=== PATIENT | female | born 1995 | race African-American/Black ===

== ENCOUNTER 2017-04-29 14:51 | Emergency (ER) | payer SELFPAY ==
[~2017-04-29] VITALS: Ht 165.1 cm; Wt 118.0 kg
[~2017-04-29 14:51] MED LIST: ADVAIR DISK1 INH; ALBUTEROL0.5 % IN; ALL DAY10 MG PO; AMOXICILLIN875 MG PO; CEPHALEXIN500 MG PO; DUONEB IN; FLONASE SPRAY50 MC1 INH; METRONIDAZOL500 MG PO; MUCINEX600 MG PO; NAPROSYN500 MG PO; NO MEDS; PHENERGAN SUPP RE; PREDNISONE10 MG PO; SINGULAIR PO; SYMBICORT 80-4.5MCG INH; TRIMOX500 MG PO; VENTOLIN HF1 IN; VENTOLIN HFA IN; ZITHROMAX250 MG PO
[2017-04-29 15:44] LABS: HEMATOCRIT 38.3 % (37.0-47.0); IMMATURE GRANULOCYTES 0.1 % (0.0-1.0); MEAN CELL VOLUME 75.7 fL CALC (80.0-100.0); MEAN CORPUSCULAR HGB 23.7 pG CALC (26.0-32.0); MEAN CORPUSCULAR HGB CONC 31.3 g/L CALC (32.0-36.0); NEUT# 7.05 thou/uL (2.00-7.15); RED BLOOD COUNT 5.06 mill/uL (4.20-5.60); RED CELL DISTRI WIDTH 15.3 % (11.5-15.5)
[2017-04-29 16:05] LABS: ALBUMIN 4.4 g/dL (3.2-5.0); ALKALINE PHOSPHATASE 62 u/l (38-126); AMYLASE 78 u/l (30-110); ANION GAP 17 (6-22 (CALC)); BILIRUBIN, TOTAL 0.5 mg/dL (0.0-1.4); BUN 14 mg/dL (7-17); BUN/CREATININE RATIO 18 (12-20 (CALC)); CALCIUM 9.2 mg/dL (8.4-10.2); CARBON DIOXIDE 24 mmol/l (22-30); CHLORIDE 103 mmol/l (95-108); CREATININE 0.8 mg/dL (0.5-1.0); GFR > 60 ML/MIN (>=60 (CALC)); GFR FOR AFR.AMER. > 60 ML/MIN (>=60 (CALC)); GLUCOSE 111 mg/dL (65-105); LIPASE 104 u/l (23-300); SGOT/AST 22 u/l (14-36); SGPT/ALT 30 u/l (9-52); SODIUM 140 mmol/l (137-146)
[2017-04-29] MEDS ORDERED: ZOFRAN ODT4 MG PO (16:27)
[2017-04-29] MEDS ORDERED: LOMOTIL2.5 MG PO (16:27)
[2017-04-29 16:59] VITALS: BP 127/76
== END 2017-04-29 17:09 | disposition home or self-care (01) | DRG 392 ==
LOC: ED 14:51
PROVIDERS: Emergency Medicine
DX: K52.9 Noninfective gastroenteritis and colitis, unspecified (principal); J45.909 Unspecified asthma, uncomplicated

== ENCOUNTER 2021-12-30 14:15 | Emergency (ER) | payer OTHER ==
[~2021-12-30] VITALS: Ht 165.1 cm; Wt 136.0 kg
[~2021-12-30 14:15] MED LIST changes: +LOMOTIL2.5 MG PO; +ZOFRAN ODT4 MG PO
[2021-12-30] MEDS ORDERED: ALBUTEROL SUL0.083 % IN (15:09)
[2021-12-30] MEDS ORDERED: SYMBICORT 80-4.5MCG (15:09)
[2021-12-30 15:23] LABS: HEMATOCRIT 34.2 % (37.0-47.0); HEMOGLOBIN 10.2 g/dl (12.0-16.0); MEAN CELL VOLUME 75.3 fL CALC (80.0-100.0); MEAN CORPUSCULAR HGB 22.5 pG CALC (26.0-32.0); MEAN CORPUSCULAR HGB CONC 29.8 g/dL CAL (32.0-36.0); NEUT# 1.98 thou/uL (2.00-7.15); RED BLOOD COUNT 4.54 mill/uL (4.20-5.60); RED CELL DISTRI WIDTH 16.5 % (11.5-15.5)
[2021-12-30 15:39] LABS: ALKALINE PHOSPHATASE 47 u/l (38-126); ANION GAP 12 (6-22 (CALC)); BILIRUBIN, TOTAL 0.2 mg/dL (0.0-1.4); BUN 13 mg/dL (7-17); BUN/CREATININE RATIO 15 (12-20 (CALC)); CARBON DIOXIDE 26 mmol/l (22-30); CHLORIDE 104 mmol/l (95-108); CREATININE 0.9 mg/dL (0.5-1.0); GFR FOR AFR.AMER. > 60 ML/MIN (>=60 (CALC)); GFR OTHER RACES > 60 ML/MIN (>=60 (CALC)); POTASSIUM 4.1 mmol/l (3.5-5.1); SGOT/AST 23 u/l (14-36); SODIUM 139 mmol/l (137-146); TOTAL PROTEIN 7.5 g/dL (6.3-8.2)
[2021-12-30] MEDS ORDERED: NAPROXEN500 MG PO (16:44)
[2021-12-30] MEDS ORDERED: PREDNISONE20 MG PO (16:44)
[2021-12-30 16:56] VITALS: BP 126/76
== END 2021-12-30 17:15 | disposition home or self-care (01) | DRG 556 ==
LOC: ED 14:15
PROVIDERS: Nurse Practitioner
DX: M25.572 Pain in left ankle and joints of left foot (principal); R70.0 Elevated erythrocyte sedimentation rate

== ENCOUNTER 2022-06-24 21:16 | Emergency (ER) | payer OTHER ==
[2022-06-24] VITALS (7 sets, daily range): BP systolic 121–166; BP diastolic 80–114
[~2022-06-24] VITALS: Ht 165.1 cm; Wt 139.0 kg
[~2022-06-24 21:16] MED LIST changes: +ALBUTEROL SUL0.083 % IN; +NAPROXEN500 MG PO; +PREDNISONE20 MG PO; +SYMBICORT 80-4.5MCG
[2022-06-24 21:41] LABS: BASO% 0.5 % (0-3); EOS% 9.7 % (0-8); HEMOGLOBIN 11.5 g/dl (12.0-16.0); LYMPH% 52.9 % (15-41); MEAN CELL VOLUME 74.1 fL CALC (80.0-100.0); MEAN CORPUSCULAR HGB 22.4 pG CALC (26.0-32.0); MEAN CORPUSCULAR HGB CONC 30.3 g/dL CAL (32.0-36.0); NEUT# 1.72 thou/uL (2.00-7.15); NEUT% 29.9 % (42-76); RED BLOOD COUNT 5.13 mill/uL (4.20-5.60); RED CELL DISTRI WIDTH 16.6 % (11.5-15.5)
[2022-06-24 21:53] LABS: ALBUMIN 4.7 g/dL (3.2-5.0); ALKALINE PHOSPHATASE 53 u/l (38-126); BUN 16 mg/dL (7-17); BUN/CREATININE RATIO 18 (12-20 (CALC)); CARBON DIOXIDE 26 mmol/l (22-30); CHLORIDE 105 mmol/l (95-108); CREATININE 0.9 mg/dL (0.5-1.0); GFR FOR AFR.AMER. > 60 ML/MIN (>=60 (CALC)); GFR OTHER RACES > 60 ML/MIN (>=60 (CALC)); SGOT/AST 27 u/l (14-36); SODIUM 138 mmol/l (137-146); TOTAL PROTEIN 8.9 g/dL (6.3-8.2)
[2022-06-24 21:55] LABS: D-DIMER 0.97 mg/L (0.19-0.60)
[2022-06-24 21:57] LABS: PROTHROMBIN TIME 9.6 SECONDS (9.0-12.5)
[2022-06-24 21:59] LABS: ANION GAP 11 (6-22 (CALC)); BILIRUBIN, TOTAL 0.1 mg/dL (0.02-1.3); POTASSIUM 4.1 mmol/l (3.5-5.1)
[2022-06-24] MEDS ORDERED: SYMBICORT1 AE1 IN (23:24)
[2022-06-24] MEDS ORDERED: VENTOLIN HFA IN (23:24)
== END 2022-06-24 23:54 | disposition home or self-care (01) | DRG 203 ==
LOC: ED 21:16
PROVIDERS: Family Medicine
DX: J45.901 Unspecified asthma with (acute) exacerbation (principal); T48.6X6A Underdosing of antiasthmatics, initial encounter; Z91.128 Patient's intentional underdosing of medication regimen for other reason
CPT/HCPCS: Q9967

== ENCOUNTER 2023-02-07 12:00 | Emergency (ER) | payer OTHER ==
[~2023-02-07] VITALS: Ht 165.1 cm; Wt 140.0 kg
[~2023-02-07 12:00] MED LIST changes: +SYMBICORT1 AE1 IN
[2023-02-07 12:06] VITALS: BP 135/78
[2023-02-07 12:45] LABS: ALBUMIN 4.1 g/dL (3.2-5.0); ALKALINE PHOSPHATASE 58 u/l (38-126); ANION GAP 10 (6-22 (CALC)); BASO% 0.4 % (0-3); BUN 14 mg/dL (7-17); BUN/CREATININE RATIO 17 (12-20 (CALC)); CARBON DIOXIDE 28 mmol/l (22-30); CHLORIDE 104 mmol/l (95-108); CREATININE 0.8 mg/dL (0.5-1.0); EOS% 11.1 % (0-8); GFR FOR AFR.AMER. > 60 ML/MIN (>=60 (CALC)); GFR OTHER RACES > 60 ML/MIN (>=60 (CALC)); HEMATOCRIT 36.7 % (37.0-47.0); HEMOGLOBIN 11.3 g/dl (12.0-16.0); IMMATURE GRANULOCYTES 0.6 % (0.0-5.0); LYMPH% 37.9 % (15-41); MEAN CELL VOLUME 75.7 fL CALC (80.0-100.0); MEAN CORPUSCULAR HGB 23.3 pG CALC (26.0-32.0); MEAN CORPUSCULAR HGB CONC 30.8 g/dL CAL (32.0-36.0); MONO% 7.4 % (2-13); NEUT# 2.08 thou/uL (2.00-7.15); NEUT% 42.6 % (42-76); POTASSIUM 3.9 mmol/l (3.5-5.1); RED BLOOD COUNT 4.85 mill/uL (4.20-5.60); RED CELL DISTRI WIDTH 16.3 % (11.5-15.5); SGOT/AST 30 u/l (14-36); SODIUM 138 mmol/l (137-146)
[2023-02-07 12:56] LABS: BILIRUBIN, TOTAL 0.3 mg/dL (0.02-1.3)
[2023-02-07 14:01] LABS: URINE BILIRUBIN - DIPSTICK Negative (NEGATIVE); URINE BLOOD DIPSTICK Trace-intact (NEGATIVE); URINE COLOR Yellow; URINE GLUCOSE - DIPSTICK Negative (NEGATIVE); URINE KETONE Negative (NEGATIVE); URINE LEUK ESTERASE Negative (NEGATIVE); URINE NITRITE - DIPSTICK Negative (Negative); URINE PROTEIN - DIPSTICK >=300 mg/dL (NEG-TRACE); URINE SPECIFIC GRAVITY 1.025; URINE UROBILINOGEN - DIPSTICK 0.2 E.U./dL (0.2)
[2023-02-07 14:02] LABS: URINE EPITHELIAL CELLS MODERATE EPI/hpf (0-FEW); URINE MUCUS MODERATE hpf (NONE-FEW); URINE RBC 0-2 RBC/hpf (0-5)
[2023-02-07] MEDS ORDERED: PREDNISONE20 MG PO (14:26)
[2023-02-07] MEDS ORDERED: ZPAK PO (14:26)
[2023-02-07] MEDS ORDERED: PROAIR HFA IN (14:29)
[2023-02-07 15:00] VITALS: BP 135/78
== END 2023-02-07 15:33 | disposition home or self-care (01) | DRG 203 ==
LOC: ED 12:00
PROVIDERS: Nurse Practitioner
DX: J45.901 Unspecified asthma with (acute) exacerbation (principal); Z20.822 Contact with and (suspected) exposure to COVID-19

== ENCOUNTER 2023-12-28 02:18 | Emergency (ER) | payer OTHER ==
[~2023-12-28] VITALS: Ht 167.6 cm; Wt 146.0 kg
[~2023-12-28 02:18] MED LIST changes: +BACTRIM DS1 TAB PO; +PROAIR HFA IN; +ZPAK PO
[2023-12-28 03:27] LABS: URINE BLOOD DIPSTICK Trace-lysed (NEGATIVE); URINE GLUCOSE - DIPSTICK Negative (NEGATIVE); URINE KETONE Trace mg/dL (NEGATIVE); URINE LEUK ESTERASE Negative (NEGATIVE); URINE NITRITE - DIPSTICK Negative (Negative); URINE PROTEIN - DIPSTICK >=300 mg/dL (NEG-TRACE); URINE SPECIFIC GRAVITY >=1.030
[2023-12-28 03:27] LABS: BASO% 0.4 % (0-3); EOS% 5.5 % (0-8); HEMATOCRIT 37.6 % (37.0-47.0); HEMOGLOBIN 11.7 g/dl (12.0-16.0); IMMATURE GRANULOCYTES 0.5 % (0.0-5.0); MEAN CELL VOLUME 75.5 fL CALC (80.0-100.0); MEAN CORPUSCULAR HGB 23.5 pG CALC (26.0-32.0); MEAN CORPUSCULAR HGB CONC 31.1 g/dL CAL (32.0-36.0); MONO% 7.3 % (2-13); NEUT# 2.66 thou/uL (2.00-7.15); NEUT% 48.3 % (42-76); RED BLOOD COUNT 4.98 mill/uL (4.20-5.60); RED CELL DISTRI WIDTH 15.9 % (11.5-15.5)
[2023-12-28 03:28] LABS: URINE COLOR Yellow
[2023-12-28 03:33] LABS: URINE RBC 0-2 RBC/hpf (0-5); URINE SQUAMOUS EPITHELIAL CELL MANY EPI/hpf (0-FEW)
[2023-12-28 03:42] LABS: ALBUMIN 4.3 g/dL (3.2-5.0); BILIRUBIN, TOTAL 0.4 mg/dL (0.02-1.3); CREATININE 0.9 mg/dL (0.5-1.0); POTASSIUM 3.9 mmol/l (3.5-5.1); TOTAL PROTEIN 7.9 g/dL (6.3-8.2)
[2023-12-28] MEDS ORDERED: MAGNESIUM CITRATE 296 ML/BTL PO ONE (05:15)
[2023-12-28 05:28] VITALS: BP 127/78
== END 2023-12-28 05:28 | disposition home or self-care (01) | DRG 392 ==
LOC: ED 02:18
PROVIDERS: Emergency Medicine
DX: K59.01 Slow transit constipation (principal); J45.909 Unspecified asthma, uncomplicated